=== PATIENT | female | born 1990 | race African-American/Black ===

== ENCOUNTER 2018-10-31 12:30 | Emergency (ER) | payer SELFPAY ==
[~2018-10-31] VITALS: Ht 157.5 cm; Wt 77.0 kg
[2018-10-31 12:32] VITALS: BP 122/72
== END 2018-10-31 14:54 | disposition left against medical advice (07) ==
LOC: ER 13:01
DX: R10.9 Unspecified abdominal pain (principal); Z53.21 Procedure and treatment not carried out due to patient leaving prior to being seen by health care provider